=== PATIENT | male | born 1985 | race Caucasian/White ===

== ENCOUNTER 2023-07-25 14:35 | Emergency (ER) | payer OTHER ==
[~2023-07-25] VITALS: Ht 157.5 cm; Wt 68.0 kg
[2023-07-25 14:42] VITALS: BP 108/70; PULSE 85; RESP 16; TEMP 98.6; O2SAT 99
[2023-07-25] MEDS ORDERED: LIDOCAINE HCL 1% 20ML VIAL (Pyxis) INJ INFIL ONE (15:30)
== END 2023-07-25 19:24 ==
LOC: ER 14:35
DX: S61.011A Laceration without foreign body of right thumb without damage to nail, initial encounter (principal); X58.XXXA Exposure to other specified factors, initial encounter; Y93.89 Activity, other specified; Y92.89 Other specified places as the place of occurrence of the external cause; Y99.8 Other external cause status
CPT/HCPCS: 73120; 12002; 99283; J3490; Z7610